=== PATIENT | female | born 1975 | race African-American/Black ===

== ENCOUNTER 2016-07-23 22:45 | Emergency (ER) | payer OTHER ==
[2016-07-24 01:59] LABS: URINE SOURCE CLEAN CATCH
[2016-07-24 02:05] LABS: BASOPHIL% 0.6 % (0-2.5); EOSINOPHIL# 0.6 X10e3 (0-0.7); EOSINOPHIL% 9.6 % (0.0-7.0); HEMATOCRIT 37.8 % (35.0-45.0); LYMPHOCYTE# 2.5 X10e3 (1.0-3.5); LYMPHOCYTE% 44.3 % (17.0-45.0); MEAN CELL VOLUME 80.8 FL (83-96); MEAN CORPUSCULAR HEMOGLOBIN 25.6 PG (28-34); MEAN CORPUSCULAR HGB CONC 31.7 g/dL (30-36); MEAN PLATELET VOLUME 7.2 FL (6.5-11.5); MONOCYTE# 0.5 X10e3 (0-1.0); MONOCYTE% 8.8 % (3.0-12.0); NEUTROPHIL# 2.1 X10e3 (1.5-7.1); NEUTROPHIL% 36.7 % (40-75); PLATELET COUNT 294 X10e3 (140-420); RED BLOOD COUNT 4.68 X10e (3.90-5.30); RED CELL DISTRIBUTION WIDTH 14.5 % (11.0-15.5); WHITE BLOOD COUNT 5.7 X10e3 (4.0-10.5)
[2016-07-24 02:10] LABS: DIFF IND NO
[2016-07-24 02:12] LABS: URINE APPEARANCE CLEAR; URINE BILIRUBIN NEG (NEG); URINE BLOOD TRACE (NEG); URINE COLOR YELLOW; URINE GLUCOSE NEG (NEG); URINE KETONE NEG (NEG); URINE LEUKOCYTE ESTERASE NEG (NEG); URINE NITRATE NEG (NEG); URINE PROTEIN NEG (NEG); URINE SPECIFIC GRAVITY 1.028 (1.003-1.035)
[2016-07-24 02:14] LABS: CULTURE INDICATED? YES; U HYALINE CASTS AUWI 0-2 /[LPF]; URBCS1 AUWI 0-2 /[HPF] (0-2); URINE BACTERIA AUWI 1+ (NEGATIVE); URINE SQUAMOUS EPITHELIAL CELL NONE SEEN /[HPF]
[2016-07-24 02:28] LABS: ALBUMIN SERUM 3.8 g/dL (3.5-5.0); ALKALINE PHOSPHATASE 77 U/L (32-92); ALT (SGPT) 18 U/L (10-40); AST (SGOT) 17 U/L (10-42); BILIRUBIN, DIRECT <0.1 mg/dL (0.0-0.2); BILIRUBIN,INDIRECT 0.1 mg/dL (0.0-0.9); BILIRUBIN,TOTAL 0.2 mg/dL (0.2-2.0); BLOOD UREA NITROGEN 12 mg/dL (9-23); BUN/CREATININE RATIO 17.14; CALCIUM SERUM 8.8 mg/dL (8.4-10.2); CARBON DIOXIDE 25 mmol/L (22-31); CHLORIDE 102 mmol/L (100-111); CREATININE SERUM 0.7 mg/dL (0.6-1.4); GLOM FILT RATE Estimated 124.7 mL/min (>60); GLUCOSE FASTING 111 mg/dL (70-110); LIPASE 25 U/L (22-51); POTASSIUM 3.9 mmol/L (3.5-5.1); PROTEIN TOTAL SERUM 7.5 g/dL (6.0-8.3); SODIUM 133 mmol/L (135-145)
[2016-07-24] MEDS ORDERED: LEVOTHYROXINE50 MCG PO (02:56)
[2016-07-24] MEDS ORDERED: PROTONIX PO (02:57)
[2016-07-24] MEDS ORDERED: GAS RELIEF 8080 M1 PO (02:57)
[2016-07-24] MEDS ORDERED: FLOVENT DISKUS50 MCG (02:58)
[2016-07-24] MEDS ORDERED: ASPIRIN81 M2 PO (02:58)
[2016-07-24] MEDS ORDERED: POTASSIUM CHLO10 ME1 PO (02:59)
[2016-07-24] MEDS ORDERED: MULTIVITAMINS1 EAC3 PO (02:59)
[2016-07-24] MEDS ORDERED: LOVENOX40 MG/0.4 INJ (03:00)
[2016-07-24] MEDS ORDERED: CALCIUM CARBONATE PO (03:01)
[2016-07-24] MEDS ORDERED: ADVAIR 250-501 EAC1 INH (03:02)
[2016-07-24] MEDS ORDERED: FUROSEMIDE80 MG PO (03:03)
[2016-07-24] MEDS ORDERED: DOCUSATE SODIU100 MG PO (03:03)
[2016-07-24] MEDS ORDERED: DONEPEZIL HCL10 MG PO (03:03)
[2016-07-24] MEDS ORDERED: RISPERDAL2 MG PO (03:04)
[2016-07-24] MEDS ORDERED: SERTRALINE HCL100 M1 PO (03:04)
[2016-07-24] MEDS ORDERED: LIPITOR40 MG PO (03:04)
[2016-07-24] MEDS ORDERED: POLYETHYLENE GLY1 GM PO (03:11)
[2016-07-24] MEDS ORDERED: ZOFRAN ODT4 M1 SL (03:12)
[2016-07-24] MEDS ORDERED: HYDROCODON-ACE1 EAC5 PO (03:12)
[2016-07-24] MEDS ORDERED: XANAX0.5 M1 PO (03:18)
[2016-07-24] MEDS ORDERED: IPRAT-ALBUT 0.5-3 ML INH (03:19)
[2016-07-24] MEDS ORDERED: TYLENOL EXTRA500 M1 PO (03:19)
[2016-07-24] MEDS ORDERED: LAXATIVE5 M1 PO (03:20)
[2016-07-24] MEDS ORDERED: NOVOLOG100 U/ML (03:21)
[2016-07-24] MEDS ORDERED: NOVOLOG FL100 UNIT/1 SUBQ (03:21)
[2016-07-24] MEDS ORDERED: AMMONIUM LACTA385 G1 TOP (03:22)
[2016-07-24] MEDS ORDERED: LEVEMIR FL100 UNIT/1 SUBQ (03:22)
[2016-07-24] MEDS ORDERED: MICONAZOLE NITR TOP (03:30)
== END 2016-07-24 03:00 | disposition home or self-care (01) ==
LOC: CED 22:45
DX: R10.13 Epigastric pain (principal); Z79.899 Other long term (current) drug therapy
CPT/HCPCS: 36415; 80048; 80076; 81003; 83690; 84703; 85025; 87086; 96361; 96374; 99284; J2405